=== PATIENT | male | born 1940 | race Caucasian/White ===

== ENCOUNTER 2018-05-23 13:01 | Inpatient (IN) | payer OTHER ==
[~2018-05-23] VITALS: Ht 170.2 cm; Wt 68.0 kg
[~2018-05-23 13:01] MED LIST: ASPIR 8181 MG; COZAAR100 MG PO; FINASTERIDE5 MG; GABAPENTIN600 MG; LOSARTAN-HCTZ1 EACH; NORVASC2.5 M1; RANITIDINE HCL300 MG; SIMVASTATIN; SIMVASTATIN20 MG; TAMS0.4C; TAMS0.4C PO
== END 2018-05-26 18:29 | disposition home or self-care, planned readmission (81) | DRG 379 ==
LOC: ER 13:01 → SEC-K 21:06 → MEDI 21:06 → MEDJ 05-24 05:06 → MEDI 05-24 05:06 → SURG 05-24 05:13 → SEC-K 05-24 08:36 → MEDJ 05-24 08:48 → MEDI 05-24 08:48
PROC: BW21ZZZ Computerized Tomography (CT Scan) of Abdomen and Pelvis (ICD-10-PCS; 2018-05-23)
PROC: 30233N1 Transfusion of Nonautologous Red Blood Cells into Peripheral Vein, Percutaneous Approach (ICD-10-PCS; 2018-05-23)
PROC: 0DB74ZZ Excision of Stomach, Pylorus, Percutaneous Endoscopic Approach (ICD-10-PCS; principal; 2018-05-25)
DX: K29.51 Unspecified chronic gastritis with bleeding (principal); D50.0 Iron deficiency anemia secondary to blood loss (chronic)

== ENCOUNTER 2022-06-09 10:12 | Outpatient (CLI) | payer OTHER | END 2022-06-09 10:14 | disposition home or self-care (01) | LOC: RAD 10:12 | PROVIDERS: ATTEND Urology | DX: R31.21 Asymptomatic microscopic hematuria (principal) ==